=== PATIENT | male | born 1975 | race American Indian/Alaskan Native ===

== ENCOUNTER 2021-10-12 12:12 | Emergency (ER) | payer SELFPAY ==
[2021-10-12] MEDS ORDERED: ONDANSETRON 4 MG/2 ML INJ IV ONE ×2 (12:35→14:42)
[2021-10-12] MEDS ORDERED: SODIUM CHLORIDE 0.9% 1000 ML 1,000 ML IV ONE ×3 (12:35→16:41)
[2021-10-12] MEDS ORDERED: MORPHINE 4 MG/1 ML INJ IV ONE (12:35)
--- NOTE | 2021-10-12 12:39 | Emergency Department Report ---
ED Abdominal Pain HPI - General Chief Complaint: Abdominal Pain Stated Complaint: STOMACH PAIN, HIGH SUGAR Time Seen by Provider: 10/12/21 12:27 Source: patient Mode of arrival: Wheelchair Limitations: No Limitations - History of Present Illness Initial Comments: 46-year-old male with a past medical history insulin-dependent diabetes, hypertension, and elevated cholesterol presents to the hospital with complaints of generalized abdominal pain since 3 AM. Nausea and vomiting with p.o. intolerance began since 7 AM with multiple episodes of vomiting. No reports of hematemesis or hematochezia. Positive body aches without reported fever. Patient received 1 dose of Moderna Covid vaccine during. Glucose running in the 260s with last dose of insulin this a.m. friend at the bedside reports that patient has had some mild confusion. No previous abdominal surgeries reported - Related Data Allergies Allergy/AdvReac Type Severity Reaction Status Date / Time No Known Allergies Allergy Verified 10/12/21 13:15 ED Review of Systems ROS: Stated complaint: STOMACH PAIN, HIGH SUGAR Other details as noted in HPI Comment: All other systems reviewed and negative ED Physical Exam - General Limitations: No Limitations - Other Other exam information: General: position secondary to discomfort with intermittent vomiting Head: Atraumatic Eyes: normal appearance ENT: Moist mucous membranes Neck: Normal appearance, no midline tenderness Chest: Clear to auscultation bilaterally CV: Regular rate and rhythm Abdomen: Soft, normal bowel sounds, mild generalized tenderness, nondistended, no rebound or guarding Back: Normal inspection Extremity: Normal inspection, full range of motion Neuro: Alert O x 3, no facial asymmetry, speech clear, no gross motor sensory deficit Psych: Appropriate behavior Skin: No rash ED Course Vital Signs 10/12/21 10/12/21 12:21 17:45 Temperature 97.8 F 97.8 F Pulse Rate 87 89 Respiratory 24 20 Rate Blood Pressure 168/97 174/90 [Right] O2 Sat by Pulse 100 99 Oximetry - Reevaluation(s) Reevaluation #1: 10/12/21 16:39 Patient continues to have nausea and vomiting despite Zofran 8 mg, Reglan, and Benadryl. glucose 195 after 1 L ns, urine collection pending 10/12/21 16:42 pt has been restless during ed stay and friend at bedside providing most of the history. During ED stay pt also c/o headache. since ct abd/pelvis normal will perform head ct to r/o abnormality causing intractable n/v prior to admission Reevaluation #2: 10/12/21 19:06 I planned to provide Haldol for additional antiemetic/possible gastroparesis relief however, patient is now sleeping after Ativan 0.5 mg. Awaiting hospitalist evaluation 10/12/21 19:06 Patient failed to provide a urine sample. He urinated in the toilet and filled up the cup with water ED Medical Decision Making - Lab Data Result diagrams: 10/12/21 12:59 10/12/21 12:59 Lab Results 10/12/21 10/12/21 10/12/21 Range/Units 12:20 12:59 12:59 WBC 5.9 (4.5-11.0) K/mm3 RBC 4.22 (3.65-5.03) M/mm3 Hgb 11.6 L (11.8-15.2) gm/dl Hct 34.8 L (35.5-45.6) % MCV 83 L (84-94) fl MCH 28 (28-32) pg MCHC 33 (32-34) % RDW 13.9 (13.2-15.2) % Plt Count 179 (140-440) K/mm3 Lymph % (Auto) 14.2 (13.4-35.0) % Upson % (Auto) 5.7 (0.0-7.3) % Eos % (Auto) 0.4 (0.0-4.3) % Baso % (Auto) 0.3 (0.0-1.8) % Lymph # (Auto) 0.8 L (1.2-5.4) K/mm3 Upson # (Auto) 0.3 (0.0-0.8) K/mm3 Eos # (Auto) 0.0 (0.0-0.4) K/mm3 Baso # (Auto) 0.0 (0.0-0.1) K/mm3 Seg Neutrophils % 79.4 H (40.0-70.0) % Seg Neutrophils # 4.7 (1.8-7.7) K/mm3 VBG pH (7.320-7.420) Sodium 134 L (137-145) mmol/L Potassium 4.2 (3.6-5.0) mmol/L Chloride 98.7 (98-107) mmol/L Carbon Dioxide 21 L (22-30) mmol/L Anion Gap 19 mmol/L BUN 25 H (9-20) mg/dL Creatinine 1.4 H (0.8-1.3) mg/dL Estimated GFR 54 ml/min BUN/Creatinine Ratio 18 % Glucose 279 H (75-100) mg/dL POC Glucose 262 H (70-105) mg/dL Calcium 8.7 (8.4-10.2) mg/dL Total Bilirubin 0.20 (0.1-1.2) mg/dL AST 41 H (5-40) units/L ALT 36 (7-56) units/L Alkaline Phosphatase 58 (35-129) units/L Troponin T (0.00-0.029) ng/mL Total Protein 6.5 (6.3-8.2) g/dL Albumin 3.4 L (3.9-5) g/dL Albumin/Globulin Ratio 1.1 % Lipase 49 (13-60) units/L 10/12/21 10/12/21 10/12/21 Range/Units 12:59 12:59 16:34 WBC (4.5-11.0) K/mm3 RBC (3.65-5.03) M/mm3 Hgb (11.8-15.2) gm/dl Hct (35.5-45.6) % MCV (84-94) fl MCH (28-32) pg MCHC (32-34) % RDW (13.2-15.2) % Plt Count (140-440) K/mm3 Lymph % (Auto) (13.4-35.0) % Upson % (Auto) (0.0-7.3) % Eos % (Auto) (0.0-4.3) % Baso % (Auto) (0.0-1.8) % Lymph # (Auto) (1.2-5.4) K/mm3 Upson # (Auto) (0.0-0.8) K/mm3 Eos # (Auto) (0.0-0.4) K/mm3 Baso # (Auto) (0.0-0.1) K/mm3 Seg Neutrophils % (40.0-70.0) % Seg Neutrophils # (1.8-7.7) K/mm3 VBG pH 7.439 H (7.320-7.420) Sodium (137-145) mmol/L Potassium (3.6-5.0) mmol/L Chloride (98-107) mmol/L Carbon Dioxide (22-30) mmol/L Anion Gap mmol/L BUN (9-20) mg/dL Creatinine (0.8-1.3) mg/dL Estimated GFR ml/min BUN/Creatinine Ratio % Glucose (75-100) mg/dL POC Glucose 192 H (70-105) mg/dL Calcium (8.4-10.2) mg/dL Total Bilirubin (0.1-1.2) mg/dL AST (5-40) units/L ALT (7-56) units/L Alkaline Phosphatase (35-129) units/L Troponin T < 0.010 (0.00-0.029) ng/mL Total Protein (6.3-8.2) g/dL Albumin (3.9-5) g/dL Albumin/Globulin Ratio % Lipase (13-60) units/L - Radiology Data Radiology results: report reviewed CT ABDOMEN AND PELVIS WITH CONTRAST INDICATION / CLINICAL INFORMATION: n,v po intolerance. TECHNIQUE: Axial CT images were obtained through the abdomen and pelvis after IV contrast. All CT scans at this location are performed using CT dose reduction for ALARA by means of automated exposure control. COMPARISON: None available. FINDINGS: LOWER CHEST: No significant abnormality. LIVER: No significant abnormality. GALLBLADDER: No significant abnormality. PANCREAS: No significant abnormality. SPLEEN: No significant abnormality. ADRENALS: No significant abnormality. RIGHT KIDNEY / URETER: No significant abnormality. LEFT KIDNEY / URETER: No significant abnormality. STOMACH / SMALL BOWEL: No significant abnormality., Prominent gas-filled loop of bowel within the mid upper abdomen, just anterior to the stomach body without surrounding inflammation. COLON: No significant abnormality. APPENDIX: No significant abnormality. PERITONEUM: No free fluid, free air or organized collection. LYMPH NODES: No significant adenopathy. AORTA / ARTERIES/ VEINS: No significant abnormality. URINARY BLADDER: Mild urinary bladder distention. REPRODUCTIVE ORGANS: No significant abnormality. ADDITIONAL FINDINGS: None. SKELETAL SYSTEM: No significant abnormality. IMPRESSION: 1. No acute abnormality. - Medical Decision Making 46-year male presents to the hospital with persistent nausea and vomiting d espite ED treatment with Reglan, zofran, and ativan. Patient received morphine for generalized abdominal pain. CT abdomen pelvis without acute abnormality. Labs reveal mild dehydration renal insufficiency with hyperglycemia without signs of DKA. . Received CT head noncontrast unremarkable. case d/w hospitalist for admission. - Differential Diagnosis DKA, pancreatitis, gastritis, WI, gastroparesis, intracranial hemorrhage Critical Care Time: No Critical care attestation.: If time is entered above; I have spent that time in minutes in the direct care of this critically ill patient, excluding procedure time. ED Disposition Clinical Impression: Intractable nausea and vomiting, Abdominal pain, Uncontrolled diabetes mellitus, Dehydration, Mild renal insufficiency Disposition: ADMITTED INPATIENT Is pt being admited?: Yes Condition: Stable Instructions: Diabetes Mellitus Type 2 in Adults (ED) Time of Disposition: 19:07 (d/w DR Hodges)
[2021-10-12] MEDS ORDERED: FAMOTIDINE 20 MG/2 ML INJ IV ONE (12:41)
[2021-10-12 13:22] LABS: Basophils % (Auto) 0.3 % (0.0-1.8); Eosinophils % (Auto) 0.4 % (0.0-4.3); Hematocrit 34.8 % (35.5-45.6); Hemoglobin 11.6 gm/dl (11.8-15.2); Lymphocytes # (Auto) 0.8 K/mm3 (1.2-5.4); Lymphocytes % (Auto) 14.2 % (13.4-35.0); Mean Corpuscular HGB Conc 33 % (32-34); Mean Corpuscular Volume 83 fl (84-94); Monocytes # (Auto) 0.3 K/mm3 (0.0-0.8); Monocytes % (Auto) 5.7 % (0.0-7.3); Platelet Count 179 K/mm3 (140-440); Red Blood Count 4.22 M/mm3 (3.65-5.03); Red Cell Distribution Width 13.9 % (13.2-15.2)
[2021-10-12 13:45] LABS: Albumin 3.4 g/dL (3.9-5); Calcium 8.7 mg/dL (8.4-10.2)
--- NOTE | 2021-10-12 14:48 | Cat Scan Report ---
CT ABDOMEN AND PELVIS WITH CONTRAST INDICATION / CLINICAL INFORMATION: n,v po intolerance. TECHNIQUE: Axial CT images were obtained through the abdomen and pelvis after IV contrast. All CT sc ans at this location are performed using CT dose reduction for ALARA by means of automated exposure c ontrol. COMPARISON: None available. FINDINGS: LOWER CHEST: No significant abnormality. LIVER: No significant abnormality. GALLBLADDER: No significant abnormality. PANCREAS: No significant abnormality. SPLEEN: No significant abnormality. ADRENALS: No significant abnormality. RIGHT KIDNEY / URETER: No significant abnormality. LEFT KIDNEY / URETER: No significant abnormality. STOMACH / SMALL BOWEL: No significant abnormality., Prominent gas-filled loop of bowel within the mid upper abdomen, just anterior to the stomach body without surrounding inflammation. COLON: No significant abnormality. APPENDIX: No significant abnormality. PERITONEUM: No free fluid, free air or organized collection. LYMPH NODES: No significant adenopathy. AORTA / ARTERIES/ VEINS: No significant abnormality. URINARY BLADDER: Mild urinary bladder distention. REPRODUCTIVE ORGANS: No significant abnormality. ADDITIONAL FINDINGS: None. SKELETAL SYSTEM: No significant abnormality. IMPRESSION: 1. No acute abnormality. Signer Name: Leonel Warner MD Signed: 10/12/2021 2:43 PM Workstation Name: [id number]
[2021-10-12] MEDS ORDERED: METOCLOPRAMIDE 10 MG/2 ML INJ IV ONE (15:16)
[2021-10-12] MEDS ORDERED: diphenhydrAMINE 50 MG/ML VIAL IV ONE (15:16)
[2021-10-12] MEDS ORDERED: LORazepam 2 MG/ML VIAL IV ONE (17:59)
--- NOTE | 2021-10-12 18:41 | Cat Scan Report ---
CT HEAD WITHOUT CONTRAST INDICATION / CLINICAL INFORMATION: headache, vomiting. TECHNIQUE: All CT scans at this location are performed using CT dose reduction for ALARA by means of automated e xposure control. COMPARISON: None available. FINDINGS: HEMORRHAGE: No evidence of intracranial hemorrhage or extra-axial fluid collection. EXTRA-AXIAL SPACES: Cortical sulci, sylvian fissures and basilar cisterns have an unremarkable appear ance. VENTRICULAR SYSTEM: The third and lateral ventricles are of normal size and configuration. CEREBRAL PARENCHYMA: No areas of abnormal brain parenchymal attenuation are identified. There is no i ndication of recent infarction. MIDLINE SHIFT OR HERNIATION: There is no mass effect. CEREBELLUM / BRAINSTEM: Brainstem and cerebellum have an unremarkable appearance. MIDLINE STRUCTURES:No abnormalities of the pituitary gland or pineal region are identified. INTRACRANIAL VESSELS:No abnormalities are identified on this noncontrast head CT. ORBITS: visualized portions of the orbits have an unremarkable appearance. SOFT TISSUES of HEAD: No significant abnormality. CALVARIUM: Evaluation of bone windows reveals no abnormalities. PARANASAL SINUSES / MASTOID AIR CELLS: Visualized portions of the paranasal sinuses are free from inf lammatory mucosal disease. Mastoid air cells are normally pneumatized. IMPRESSION: 1. Normal head CT without contrast. Signer Name: Cory Varma MD Signed: 10/12/2021 6:36 PM Workstation Name: [id number]
[2021-10-12] MEDS ORDERED: HALOPERIDOL LACTATE 5 MG/1 ML INJ IM ONE (18:58)
--- NOTE | 2021-10-12 20:25 | Event Note ---
Date: 10/12/21 46 YO Male with DM with dietary and medication noncompliance, HTN, HLD presents ED for evaluation. Patient seen and evaluated in the emergency department. All lab and imaging studies reviewed. Patient acknowledges diminished oral intake and noncompliance with diet and insulin therapy. Patient found to have elevated blood glucose with concomitant diabetic gastroparesis. Patient treated with IV fluid resuscitation therapy and antiemetic therapy with improvement in symptoms. Patient medically optimized. Patient discharged home instructed to follow-up with primary care physician within 1 week with blood glucose log. 35 minutes dedicated to patient discharge and coordination of care. Patient seen and evaluated prior to discharge most definitive physical exam findings. Patient does not meet admission criteria at this time. General: lying in bed no acute distress. Head: Atraumatic Eyes: normal appearance ENT: Moist mucous membranes Neck: Normal appearance, no midline tenderness Chest: Clear to auscultation bilaterally CV: Regular rate and rhythm Abdomen: Soft, normal bowel sounds, nontender, nondistended, no rebound or guard ing Back: Normal inspection Extremity: Normal inspection, full range of motion Neuro: Alert O x 3, no facial asymmetry, speech clear, no gross motor sensory deficit Psych: Appropriate behavior Skin: No rash
[2021-10-12 21:20] VITALS: BP 150/72
== END 2021-10-12 21:17 | disposition admitted as inpatient to this hospital (09) ==
LOC: ED 12:12
DX: R10.84 Generalized abdominal pain (principal); R11.2 Nausea with vomiting, unspecified; E11.65 Type 2 diabetes mellitus with hyperglycemia; E86.0 Dehydration; I12.9 Hypertensive chronic kidney disease with stage 1 through stage 4 chronic kidney disease, or unspecified chronic kidney disease; N18.9 Chronic kidney disease, unspecified; E78.00 Pure hypercholesterolemia, unspecified
CPT/HCPCS: 36415; 70450; 74177; 80053; 82805; 82962; 83690; 84484; 85025; 96361; 96374; 96375; 96376; 99284; J1200; J2060; J2270; J2405; J2765; J3490; J7030; Q9967; Q0162